=== PATIENT | female | born 1995 | race African-American/Black ===

== ENCOUNTER 2024-05-05 23:13 | Day surgery (SDC) | payer SELFPAY ==
[2024-05-05 23:58] VITALS: BMI 32.1
[2024-05-06] MEDS ORDERED: hydrALAZINE 20 MG/ML VIAL SLOW IVP PRN (00:38)
[2024-05-06 01:54] LABS: Bilirubin Neg (Negative); Blood, Urine Negative (Negative); Clarity Clear (Clear); Glucose, Urine (Dipstick) Normal (Negative); Ketone, Urine Negative (Negative); Leukocyte Negative (Negative); Nitrite Negative (Negative); Protein, Urine (Dipstick) Negative (Neg-Trace); Urobilinogen Normal mg/dL (Less than 2)
== END 2024-05-06 03:48 | disposition home or self-care (01) ==
LOC: CSHLD/OP 23:13
PROVIDERS: ATTEND Family Medicine
DX: O09.213 Supervision of pregnancy with history of pre-term labor, third trimester (principal); O26.873 Cervical shortening, third trimester; Z88.8 Allergy status to other drugs, medicaments and biological substances; Z3A.30 30 weeks gestation of pregnancy; Z79.899 Other long term (current) drug therapy
CPT/HCPCS: 76817; 81003; 87480; 87510; 87660; 99284

== ENCOUNTER 2024-06-08 22:48 | Day surgery (SDC) | payer OTHER ==
[2024-06-08] MEDS ORDERED: hydrALAZINE 20 MG/ML VIAL SLOW IVP PRN (23:06)
[2024-06-08 23:29] VITALS: BMI 35.6
[2024-06-08] MEDS ORDERED: Lactated Ringer's 1,000 ML IV SCH (23:45)
[2024-06-08] MEDS ORDERED: Acetaminophen 500 MG TAB PO SCH (23:45)
[2024-06-08] MEDS ORDERED: Lactated Ringer's 500 ML IV SCH (23:45)
[2024-06-09] MEDS: metroNIDAZOLE 500 MG TAB PO SCH (02:14)
[2024-06-09] MEDS: fentaNYL 50 mcg/mL 1 mL Vial SLOW IVP SCH (02:14)
== END 2024-06-09 05:08 | disposition home or self-care (01) ==
LOC: CSHLD/OP 22:48
PROVIDERS: ATTEND Family Medicine
DX: O47.03 False labor before 37 completed weeks of gestation, third trimester (principal); O23.593 Infection of other part of genital tract in pregnancy, third trimester; B96.89 Other specified bacterial agents as the cause of diseases classified elsewhere; Z3A.35 35 weeks gestation of pregnancy
CPT/HCPCS: 99283; J3010

== ENCOUNTER 2024-06-10 11:26 | Inpatient (IN) | payer OTHER ==
[2024-06-10 12:00] VITALS: BMI 35.6
[2024-06-10] MEDS ORDERED: hydrALAZINE 20 MG/ML VIAL SLOW IVP PRN ×3 (12:12→17:45)
[2024-06-10] MEDS ORDERED: Promethazine HCl 25 MG/ML VIAL IM PRN ×2 (17:45→21:04)
[2024-06-10] MEDS ORDERED: Oxytocin 30 units/NS 500 ML 500 ML IV SCH (17:45)
[2024-06-10] MEDS ORDERED: Ondansetron PF 4 MG/2 ML Vial IVP PRN ×2 (17:45→21:04)
[2024-06-10] MEDS ORDERED: Acetaminophen 500 MG TAB PO PRN (17:45)
[2024-06-10] MEDS: metroNIDAZOLE 500 MG TAB PO SCH (18:10)
[2024-06-10] MEDS: Penicillin G Potassium 5 MILL.UNITS in Sodium Chloride 0.9% 100 ML IVPB SCH (18:10)
[2024-06-10] MEDS: Lactated Ringer's 1,000 ML IV SCH (18:12)
[2024-06-10 19:05] LABS: Hemoglobin 13.1 g/dL (12.0-15.5); Mean Corpuscular Hemoglobin 29.3 pg (27.0-33.0); Mean Corpuscular Volume 91.7 fL (81.6-98.3); Mean Platelet Volume 9.4 fL (7.4-10.4); Platelet Count 251 10x3/uL (150-450); RBC Distribution Width 12.9 % (11.5-14.5); Red Blood Cell (RBC) Count 4.47 10x6/uL (3.90-5.03); White Blood Cell (WBC) Count 7.5 10x3/uL (3.5-10.5)
[2024-06-10 19:51] LABS: HBsAg Index 0.18 S/CO (0-0.99); Hep B Surf Ag - L&D Non-Reactive S/CO (NonReactive); Syphilis Antibody Nonreactive (Nonreactive); Syphilis Antibody Index 0.06 S/CO (<1.00 Non-Reactive)
[2024-06-10] MEDS ORDERED: Naloxone HCl 0.4 mg/ml Vial IVP PRN ×2 (21:04)
[2024-06-10] MEDS ORDERED: Moisturizing Cream (Eucerin) 113 GM JAR TOP PRN (21:04)
[2024-06-10] MEDS ORDERED: ePHEDrine Sulfate 50 MG/10 ML VIAL SLOW IVP PRN (21:04)
[2024-06-10] MEDS ORDERED: Lactated Ringer's 500 ML IV PRN (21:04)
[2024-06-10] MEDS ORDERED: diphenhydrAMINE 50 MG/ML VIAL IVP PRN (21:04)
[2024-06-10] MEDS ORDERED: fentaNYL 2 mcg/Ropivacaine 0.2% Epidural 100 ML CADD EPIDURAL SCH (21:15)
[2024-06-10] MEDS ORDERED: Communication Order-Pharmacy FS SCH (21:15)
[2024-06-10] MEDS: Penicillin G 2.5 MILL.units 2.5 MILL.UNITS in Premix 1 BAG IVPB SCH (22:00)
[2024-06-11] MEDS ORDERED: Milk Of Magnesia 30 ML UDCUP PO PRN (01:58)
[2024-06-11] MEDS ORDERED: diphenhydrAMINE 25 MG CAP PO PRN (01:58)
[2024-06-11] MEDS ORDERED: Preparation H Ointment 28 GM TUBE PR PRN (01:58)
[2024-06-11] MEDS ORDERED: Bisacodyl 10 MG SUPP PR PRN (01:58)
[2024-06-11] MEDS ORDERED: hydrALAZINE 20 MG/ML VIAL SLOW IVP PRN (01:58)
[2024-06-11] MEDS ORDERED: Lanolin Ointment 7 GM TUBE TOP PRN (01:58)
[2024-06-11] MEDS: Acetaminophen 325 MG TAB PO PRN (02:02)
[2024-06-11] MEDS: Lactated Ringer's 1,000 ML IV SCH (04:05)
[2024-06-11] MEDS: Misoprostol 200 MCG TAB ONE (04:06)
[2024-06-11] MEDS: Acetaminophen 500 MG TAB PO SCH (04:06)
[2024-06-11] MEDS: Boostrix 0.5 ML (Tdap) VIAL (>/=7 yrs of age) IM ONE (04:06)
[2024-06-11] MEDS: fentaNYL/Ropivacaine Epidural 100 ML ONE (04:07)
[2024-06-11] MEDS: Ibuprofen 800 MG TAB PO SCH (04:18)
[2024-06-11] MEDS: Ferrous Sulfate 325 MG TAB PO SCH (08:49)
[2024-06-11] MEDS: Prenatal Vitamin 1 TAB PO SCH (08:58)
[2024-06-11] MEDS: Docusate 100 MG CAP PO SCH (08:58)
[2024-06-11] MEDS: metroNIDAZOLE 500 MG TAB PO SCH (08:59)
[2024-06-11 09:13] LABS: #Basophils 0.03 10x3/uL (0.0-0.2); #Eosinophils 0.04 10x3/uL (0.0-0.5); #Monocytes 1.41 10x3/uL (0.0-1.1); #Neutrophils 11.27 10x3/uL (1.5-8.4); %Basophils 0.2 % (0.0-2.0); %Eosinophils 0.3 % (0.0-6.0); %Lymphocytes 13.4 % (18.0-47.0); %Monocytes 9.5 % (0.0-10.0); %Neutrophils 76.2 % (40.0-75.0); Hematocrit 44.2 % (34.9-44.5); Mean Corpuscular HGB CONC 31.7 g/dL (32.0-36.0); Mean Corpuscular Volume 91.5 fL (81.6-98.3); Mean Platelet Volume 9.9 fL (7.4-10.4); Platelet Count 267 10x3/uL (150-450); Red Blood Cell (RBC) Count 4.83 10x6/uL (3.90-5.03); White Blood Cell (WBC) Count 14.8 10x3/uL (3.5-10.5)
[2024-06-11 09:24] LABS: ALT (SGPT) 18 U/L (8-55); AST (SGOT) 24 U/L (5-34); Albumin 2.5 g/dL (3.5-5.0); Alkaline Phosphatase 300 U/L (40-110); Anion Gap 14 mmol/L (10-20); BUN (Urea Nitrogen) Less than 4 mg/dL (7.0-18.7); Calc. Creatinine Clearance 184 mL/min (70-130); Calcium 9.5 mg/dL (7.8-10.44); Carbon Dioxide 19 mmol/L (22-29); Chloride 108 mmol/L (98-107); Estimated GFR 124; Globulin 4.3 g/dL (2.4-3.5); Glucose 88 mg/dL (70-105); Potassium 3.8 mmol/L (3.5-5.1); Protein, Total 6.8 g/dL (6.0-8.3); Sodium 137 mmol/L (136-145)
[2024-06-11 14:08] LABS: Creatinine, Urine 57.05 mg/dL (47-110)
[2024-06-12 07:38] VITALS: BP 127/86; TEMP 97.5
== END 2024-06-12 08:00 | disposition home or self-care (01) | DRG 806 ==
LOC: CSHLD/OP 11:26 → CSHLD 18:01 → OBSVTOIN 18:02 → CSHPP 06-11 03:19
PROVIDERS: ADMIT Family Medicine; ATTEND Family Medicine
PROC: 10E0XZZ Delivery of Products of Conception, External Approach (ICD-10-PCS; principal; 2024-06-11)
DX: O60.14X0 Preterm labor third trimester with preterm delivery third trimester, not applicable or unspecified (principal); O23.593 Infection of other part of genital tract in pregnancy, third trimester; Z37.0 Single live birth; Z3A.35 35 weeks gestation of pregnancy; N76.0 Acute vaginitis; Z88.8 Allergy status to other drugs, medicaments and biological substances; O99.214 Obesity complicating childbirth; E66.9 Obesity, unspecified
CPT/HCPCS: 36415; 80053; 82570; 84156; 85025; 85027; 86780; 86850; 86900; 86901; 87340; J2540; J7120

== ENCOUNTER 2024-06-18 20:13 | Emergency (ER) | payer OTHER ==
[2024-06-18] MEDS ORDERED: hydrALAZINE 20 MG/ML VIAL ONE (20:58)
[2024-06-18 21:40] LABS: #Basophils 0.04 10x3/uL (0.0-0.2); #Eosinophils 0.14 10x3/uL (0.0-0.5); #Monocytes 0.45 10x3/uL (0.0-1.1); #Neutrophils 1.93 10x3/uL (1.5-8.4); %Basophils 0.8 % (0.0-2.0); %Eosinophils 2.7 % (0.0-6.0); %Lymphocytes 49.6 % (18.0-47.0); %Monocytes 8.8 % (0.0-10.0); %Neutrophils 37.9 % (40.0-75.0); Hematocrit 44.9 % (34.9-44.5); Hemoglobin 15.1 g/dL (12.0-15.5); Mean Corpuscular HGB CONC 33.6 g/dL (32.0-36.0); Mean Corpuscular Hemoglobin 30.2 pg (27.0-33.0); Mean Corpuscular Volume 89.8 fL (81.6-98.3); Mean Platelet Volume 8.8 fL (7.4-10.4); Platelet Count 383 10x3/uL (150-450); RBC Distribution Width 11.9 % (11.5-14.5); White Blood Cell (WBC) Count 5.1 10x3/uL (3.5-10.5)
[2024-06-18 21:54] LABS: ALT (SGPT) 29 U/L (8-55); AST (SGOT) 23 U/L (5-34); Albumin 3.3 g/dL (3.5-5.0); Alkaline Phosphatase 168 U/L (40-110); Anion Gap 17 mmol/L (10-20); BUN (Urea Nitrogen) 9 mg/dL (7.0-18.7); Bilirubin, Total 0.5 mg/dL (0.2-1.2); Calc. Creatinine Clearance 0 mL/min (70-130); Calcium 9.8 mg/dL (7.8-10.44); Carbon Dioxide 20 mmol/L (22-29); Chloride 109 mmol/L (98-107); Estimated GFR 107; Globulin 4.4 g/dL (2.4-3.5); Glucose 91 mg/dL (70-105); Potassium 4.1 mmol/L (3.5-5.1); Protein, Total 7.7 g/dL (6.0-8.3); Sodium 142 mmol/L (136-145)
[2024-06-18 22:00] LABS: Troponin I Less than 0.010 ng/mL (< 0.028)
== END 2024-06-18 23:25 | disposition home or self-care (01) ==
LOC: CSHERS 20:13
DX: O16.5 Unspecified maternal hypertension, complicating the puerperium (principal)
CPT/HCPCS: 80053; 84484; 85025; 93005; 96374; J0360